=== PATIENT | female | born 1970 | race Caucasian/White ===

== ENCOUNTER 2021-07-30 08:04 | Observation (INO) ==
--- NOTE | 2021-03-18 11:07 | PAT Medication Instructions ---
Medication Instructions Date of Service March 18, 2021 Home Medications acetaminophen 650 mg tablet,extended release 650 mg PO Q12H PRN citalopram 20 mg tablet 20 mg PO QAM ibuprofen 200 mg tablet 800 mg PO BID metoprolol succinate 50 mg tablet,extended release 24 hr 50 mg PO QAM omeprazole 40 mg capsule,delayed release 40 mg PO QAM ASK your surgeon for instructions ibuprofen 200 mg tablet 800 mg PO BID Take morning of surgery With a small sip of water, OTHERWISE NOTHING TO EAT OR DRINK AFTER MIDNIGHT: acetaminophen 650 mg tablet,extended release 650 mg PO Q12H PRN (okay to take up to 4 hours prior to surgery if needed) citalopram 20 mg tablet 20 mg PO QAM metoprolol succinate 50 mg tablet,extended release 24 hr 50 mg PO QAM omeprazole 40 mg capsule,delayed release 40 mg PO QAM Take evening before surgery acetaminophen 650 mg tablet,extended release 650 mg PO Q12H PRN (if needed) Other Notes If you have any questions please call us at [phone] or [phone] or [phone] or [phone]
--- NOTE | 2021-03-20 15:24 | Anesthesiology Consultation ---
Date of Service March 20, 2021 Assessment & Plan (1) Encounter for pre-operative examination: - awaiting confirmed EKG. - surgeon ordered medical pre-op evaluation 03/28/2021. - check urine am DOS. - COVID screening: Per assessment on 03/20/2021: Travel screen negative, no known COVID-19 positive contacts or current COVID-19 related symptoms. Patient vaccinated. Surgeon arranging preop COVID testing, scheduled 03/12/2021. Awaiting results. - Case discussed with Dr. Vick. Outpatient joint assessment: Patient is currently scheduled for inpatient pathway after surgery. If re-evaluated pending system levels during current pandemic, patient is NOT acceptable candidate for outpatient joint program from anesthesia standpoint given co-morbidities and functional status. Chart Review Chart Review: Acceptable Risk for Surgery (pending PCP clearance/confirmed EKG) and Patient seen in Pre Admission Testing Teaching & Discussion Pre-Anesthesia Teaching/Discussion Notes: Instructed NPO after midnight before surgery, except medications with 15 cc of water. Medication instructions provided according to the PAT guidelines. History Surgery Operation Date: 04/16/21 09:50 Proposed Procedures p Left Total Knee Arthroplasty - Nde Sommer Arevalo MD Height/Weight Height: 5 ft 1 in Weight: 116.6 kg Allergies Allergy/AdvReac Type Severity Reaction Status Date / Time sulfamethoxazole Allergy Intermediate Rash Verified 03/15/21 14:30 [From Bactrim] trimethoprim [From Bactrim] Allergy Intermediate Rash Verified 03/15/21 14:30 Medications Home Medications Medication Instructions Recorded Confirmed Last Taken acetaminophen 650 mg 650 mg PO Q12H PRN 03/15/21 03/15/21 Unknown tablet,extended release citalopram 20 mg tablet 20 mg PO QAM 03/15/21 03/15/21 Unknown ibuprofen 200 mg tablet 800 mg PO BID 03/15/21 03/15/21 Unknown metoprolol succinate 50 mg 50 mg PO QAM 03/15/21 03/15/21 Unknown tablet,extended release 24 hr omeprazole 40 mg capsule,delayed 40 mg PO QAM 03/15/21 03/15/21 Unknown release Past Medical History Medical History Anxiety Depression 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 Hypertension Well controlled, stable Morbid obesity with BMI of 45.0-49.9, adult Osteoarthritis Patient denies h/o stroke, seizures, heart attack, heart failure, DM, blood clots or blood transfusions. Exercise / Class Metabolic Activity II 4-5 Yardwork/Stairs/Walk up hill (SOB with 1 FOS, denies CP) Past Family History Family History Other No family history of adverse response to anesthesia Past Surgical History Surgical History History of benign breast biopsy History of section x2 History of colonoscopy 06/2019-repeat in 5 years for polyp History of esophagogastroduodenoscopy (EGD) 06/2019 for dysphagia, resolved with omeprazole History of gynecologic surgery D&E History of gynecological procedure removal of uterine fibroid History of wisdom tooth extraction Past Anesthesia History No Hx of Anesthesia Complications and No Family Hx of Anesthesia Complications History of PONV No Hx of PONV and No Hx of Motion Sickness Social History Smoking Status: Never smoker Do You Dip or Chew Tobacco: No Hx Alcohol Use: Yes alcohol intake frequency: holidays/special occasions only Hx Substance Use: No substance use type: does not use Review of Systems Patient denies chest pain, shortness of breath at rest, snoring, witnessed apneas, dizziness, lightheadedness, fever, chills, cough, or wheezing. Physical Exam Vital Signs Vitals BP 138/85 P 69 TEMP 98.1 SP02 94% on RA RESP 16 Physical Full cervical extension range of motion without pain TMD 3.5 finger breaths Mallampati Score 2 Dentition: intact, caps several back teeth upper and lower bilat, no loose, missing or chipped teeth, implants or bridges Lungs: normal respiratory effort. Clear throughout to auscultation, no adventitious breath sounds Cardiac: regular rate and rhythm, no murmurs noted Carotid arteries: negative bruit bilat Extremities: no distal extremity edema Lab Results Anesthesia Preop Results Results Anesthesia Widget: WBC 8.03 K/uL (4.8-10.8) 03/20/21 Hgb 12.5 g/dL (12.0-16.0) 03/20/21 Hct 36.9 % (37-47) L 03/20/21 Plt 207 K/uL (130-400) 03/20/21 Na 139 mmol/L (136-145) 03/20/21 K 3.5 mmol/L (3.5-5.1) 03/20/21 Cl 108 mmol/L (98-107) H 03/20/21 CO2 26 mmol/L (21-32) 03/20/21 BUN 16 mg/dl (7-18) 03/20/21 Creat 0.66 mg/dl (0.6-1.2) 03/20/21 Glucose Level 90 mg/dl (70-99) 03/20/21 PT 9.8 Seconds (9.0-12.0) 03/20/21 PTT 25.4 Seconds (21.0-31.0) 03/20/21 INR 1.0 (0.9-1.1) 03/20/21 Urine Color Yellow 03/20/21 Urine Appearance Clear (Clear) 03/20/21 Urine pH 6.5 (4.5-7.5) 03/20/21 Urine Specific [place] 1.010 (1.000-1.030) 03/20/21 Urine Protein Negative (Negative) 03/20/21 Urine Glucose (UA) Negative (Negative) 03/20/21 Urine Ketones Negative (Negative) 03/20/21 Urine Blood Negative (Negative) 03/20/21 Urine Nitrite Negative (Negative) 03/20/21 Urine Bilirubin Negative (Negative) 03/20/21 Urine Urobilinogen Negative (Negative) 03/20/21 Urine Leukocyte Esterase Negative (Negative) 03/20/21 Blood Type O Negative 03/20/21 Antibody Screen NEGATIVE 03/20/21 Testing Electrocardiogram Date: 03/20/21 Normal sinus rhythm, rate 73 bpm. Unconfirmed report. Chest X-Ray Date: 03/20/21 IMPRESSION: No acute chest disease.
[~2021-07-30 08:04] MED LIST: ACETAMINOPHEN 500 MG TAB PO SCH; BUPIVACAINE 0.5 % 5 MG/1 ML PF 10ML VIAL ONE; FAMOTIDINE 20 MG TAB PO SCH; LIDOCAINE 2% 2 ML VIAL/AMP(20MG/ML) INFIL ONE; LR 500ML BOLUS, THEN 15ML/HR IV SCH; LR 60ML/HR IV SCH; MIDAZOLAM HCL 1 MG/ML 2ML VIAL ONE; PROPOFOL IV EMULSION 10 MG/ML 20 ML VIAL IV ONE; ROPIVACAINE 0.5% HCL/PF 150 MG, BUPIVACAINE 0.75% MPF 20 ML, EPINEPHrine 0.15 MG, Ketor... INFIL SCH; Scopolamine 1 MG TDSY TD SCH; TRANEXAMIC ACID 1,000 MG **IV Intra-op IV SCH; TRANEXAMIC ACID 1,000 MG **IV Pre-op IV SCH; ceFAZolin 2000MG 2,000 MG/15 ML SYR IV SCH; dexAMETHasone 4 MG TAB PO SCH; fentaNYL citrate 100 MCG/2 ML VIAL ONE
[2021-07-30 08:48] LABS: Appearance Urine Clear (Clear); Bacteria Urine Automated Negative (Negative); Bilirubin Urine Negative (Negative); Blood Urine Negative (Negative); Color Urine Yellow; Epithelial Cell Urine Auto >30 /lpf (0-5); Glucose Urine UA Negative (Negative); Ketones Urine Negative (Negative); Leukocyte Esterase Urine Trace (Negative); Nitrite Urine Negative (Negative); Protein Urine Negative (Negative); RBC Urine Automated 0-4 /hpf (0-4); Specific Gravity Urine 1.019 (1.000-1.030); Urobilinogen Urine Negative (Negative); pH Urine 5.5 (4.5-7.5)
[2021-07-30 08:52] LABS: Basophils # (auto) 0.04 K/uL (0-0.2); Basophils % (auto) 0.4 %; Eosinophils # (auto) 0.18 K/uL (0-0.5); Eosinophils % (auto) 1.7 %; Hematocrit (blood only) 38.8 % (37-47); Hemoglobin 12.7 g/dL (12.0-16.0); Immature Granulocytes # (auto) 0.04 K/uL (0.00-0.02); Immature Granulocytes % (auto) 0.4 %; Lymphocytes # (auto) 1.82 K/uL (1.2-3.4); Lymphocytes % (auto) 17.4 %; Mean Corpuscular Hemoglobin 27.4 pg (25-34); Mean Corpuscular Volume 83.8 fL (80-100); Mean Platelet Volume 10.2 fL (7.4-10.4); Monocytes # (auto) 0.76 K/uL (0.11-0.59); Monocytes % (auto) 7.3 %; Neutrophils # (auto) 7.64 K/uL (1.4-6.5); Neutrophils % (auto) 72.8 %; Platelet Count 268 K/uL (130-400); RDW Standard Deviation 42.9 fL (36.4-46.3); Red Blood Count 4.63 M/uL (4.2-5.4); White Blood Count 10.48 K/uL (4.8-10.8)
[2021-07-30 09:07] LABS: Partial Thromboplastin Time 25.5 Seconds (21.0-31.0); Prothrombin Time 9.7 Seconds (9.0-12.0)
[2021-07-30 09:15] LABS: BUN Creatinine Ratio 21.4 (10-20); Calcium 9.1 mg/dl (8.5-10.1); Creatinine Clr Calc Pharmacy 109.9 ml/min; Est GFR (African American) 115.5 ml/min; Est GFR (Non-African American) 99.6 ml/min; Mean Corpuscular Hgb Conc 32.7 g/dL (32-36); Potassium 3.9 mmol/L (3.5-5.1)
[2021-07-30] MEDS ORDERED: ePHEDrine sulfate 50 MG/ML AMP IV PRN (09:53)
[2021-07-30] MEDS ORDERED: fentaNYL citrate 100 MCG/2 ML VIAL IV PRN (09:53)
[2021-07-30] MEDS ORDERED: ONDANSETRON INJ 2 MG/ML 2 ML VIAL IV PRN ×2 (09:53→13:38)
[2021-07-30] MEDS ORDERED: ATROPINE SULFATE 0.1 MG/ML 10ML SYR IV PRN (09:53)
--- NOTE | 2021-07-30 10:00 | History & Physical Bridge Note ---
Date of Service July 30, 2021 History & Physical Bridge Note I have examined the patient, reviewed the History & Physical and in the interval since the performance of the History & Physical I have noted the following changes of clinical significance: no changes noted Patient is aware of the risks, is asymptomatic, and tested negative for COVID- 19.
[2021-07-30] MEDS ORDERED: ORTHO JOINT ANESTHETIC ONE (10:10)
[2021-07-30] MEDS ORDERED: PROPOFOL IV EMULSION 10 MG/ML 20 ML VIAL IV ONE ×4 (11:40)
[2021-07-30] MEDS ORDERED: MIDAZOLAM HCL 1 MG/ML 2ML VIAL ONE (12:10)
--- NOTE | 2021-07-30 13:33 | Post Operative Brief Note ---
Immediate Post Op Note v1 Date of Surgery July 30, 2021 Pre & Post Diagnosis Operation Date: 07/30/21 10:20 Pre-Op Diagnosis: Left Knee Degenerative Joint Disease Post-Op Diagnosis: Left Knee Degenerative Joint Disease I identified the patient and participated in the time-out.: Yes Procedure Operation Date: 07/30/21 10:20 Actual Procedures p Left Total Knee Arthroplasty(Left) - Ned Arevalo MD Surgeon Ned Arevalo MD Reflow Operator M CHRISTOPHER Connell (No fellow avail) Estimated Blood Loss 100 Findings Consistent with Post-Op Diagnosis Fluids 1300 cc Specimens Left knee contents Anesthesia Type MAC Spinal Regional Complications none
--- NOTE | 2021-07-30 13:34 | Operative Report ---
Post Operative Report Pre & Post Diagnosis Operation Date: 07/30/21 10:20 Pre-Op Diagnosis: Left Knee Degenerative Joint Disease Post-Op Diagnosis: Left Knee Degenerative Joint Disease I identified the patient and participated in the time-out.: Yes Procedure Operation Date: 07/30/21 10:20 Actual Procedures p Left Total Knee Arthroplasty(Left) - Ned Arevalo MD Surgeon Ned Arevalo MD Production Corrugator Jose Connell PA-C (No fellow avail) Estimated Blood Loss 100 Findings See Below Examined Under Anesthesia: ROM -- There was 5 degrees to 125 degrees of flexion Ligamentous examination -- revealed stable Leny, posterior drawer, varus and valgus stress at 5 and 30 degrees. [place] Type IV changes of Patellofemoral and medial compartment, Grade II- III changes lateral compartment. Fluids 1300 cc Specimens Left knee contents Anesthesia Type MAC Spinal Regional Complications none Indications This is a 51-year-old female who has clinical and radiographic findings consistent with osteoarthritis of the a left knee. I recommended that a left total knee replacement be performed. The patient understands the risks of surgery, which include but not limited to: bleeding, infection, re-operation, damage to nerves and arteries, continued knee pain, knee stiffness, DVT, and . The patient understands all of these instructions and explanations, all of his questions have been satisfactorily addressed and the patient has elected to proceed. Informed consent was signed. Description of Procedure IMPLANTS: 1. Femur: Triathlon #3 Left PS, with pegs. 2. Tibia: Triathlon #2 [place]. 3. Insert: Triathlon #2 x 19 mm PS X3 poly. 4. Patella: Triathlon S29 x 8 mm X3 poly. 5. Simplex cement. Jose Connell PA-C is assisting with positioning, retracting, closure, and dressings due to fellow not available. Procedure: The patient was taken to the Operating Room and placed in the supine position after spinal and adductor canal nerve block was administered. My initials and a multidisciplinary time-out were used to identify the left leg as the correct operative limb. A tourniquet was placed high in the thigh. Prior to the incision, 2 grams of intravenous Ancef were given. The left leg was then prepped and draped in a standard sterile fashion. An Esmarch was used to exsanguinate the leg and the tourniquet was inflated to 250 mmHg. The planned mid-line 20 cm incision was created exposing the extensor mechanism. The medial parapatellar arthrotomy was made and the patella was everted. The patella was addressed first. It was prepared by reaming from 18 mm down to 12 mm. An S29 button was found to fit best. The peg holes were made in the standard fashion. The femur was addressed next and the guide yvonne was placed intramedullary. The initial cutting block was placed with 5 degrees of valgus and removing 10 mm for the distal cut. The cut was made and the 4-in-1 cutting block for a size 3 femur was placed. These cuts and the cuts to place the box were made in the standard fashion. Our attention was then drawn to the tibia cut with the external cutting guide, taking 2 mm from the medial low side. There was sufficient extension and flexion gap to fit a 16 mm spacer. The Tibial cut was in valgus and using Varus cutting guide this was corrected. A #2 Tibial baseplate fit well. A trial with a 19 mm spacer showed excellent stability in both flexion and extension, with good ligament balance, and thumbs free patellar tracking. Range of motion of 0- 125 degrees. The tibial baseplate was prepped for the keel and stem. All the trial components were tested again, with good stability and thumbs free tracking of the patella. All components were removed. The tourniquet was deflated. Hemostasis was obtained. 90 ml of total knee cocktail were injected into the soft tissues and periosteum. A bone plug was placed in the femur and covered with bone wax. The tourniquet was deflated. All surfaces were copiously irrigated prior to placement of the components. The femoral component followed by Tibial baseplate were cemented in place and the 19 mm X3 poly was placed. Next, the patellar button was placed using the same Simplex cement. Again the stability and ROM were unchanged. The extensor mechanism was closed with 1-0 and 0 Vicryl with the knee bent approximately 60 degrees in a standard fashion. The peritenon and deep fascia was closed with 2-0 Vicryl. The subcutaneous layer was closed with 3-0 Vicryl. The skin was closed with Zipline and shield. The limb was cleaned and dried. 4x4 dressing was placed over top followed by ABDs, sterile Webril, and a foot to thigh Sarmad bandage. The patient was then transferred to the Recovery Room in stable condition. The sponge and needle counts were correct. POST-OP INSTRUCTIONS: The patient will be WBAT. The patient will be admitted to the hospital.Labs will be obtained during the stay. DVT prophylaxis will included aspirin for 6 w eeks, TEDs, and mechanical foot pumps. The dressing will be changed prior to their discharge or postop day #2 and covered with a Silverlon dressing, whichever comes first. I attest to the content of the Intraoperative Record and any orders documented therein. Any exceptions are noted below.
[2021-07-30] MEDS ORDERED: HYDROmorphone INJ 0.5 MG/0.5 ML SYR IV PRN (13:38)
[2021-07-30] MEDS ORDERED: METOCLOPRAMIDE HCL INJ 5 MG/ML 2 ML VIAL IV PRN (13:38)
[2021-07-30] MEDS ORDERED: MAGNESIUM HYDROXIDE SUSP 30 ML UDC PO PRN (13:38)
[2021-07-30] MEDS ORDERED: NALOXONE HCL 0.4 MG/1 ML VIAL/CARP IV PRN (13:38)
[2021-07-30] MEDS ORDERED: bisacodyL 10 MG SUPP PR PRN (13:38)
--- NOTE | 2021-07-30 14:47 | Anesthesiology Progress Note ---
Date of Service July 30, 2021 Anesthesia Post Procedure Vital Signs Vital Signs: Temp Pulse Pulse Resp BP Pulse Ox 07/30/21 14:40 97.9 F 79 18 135/91 94 07/30/21 14:30 78 20 127/84 94 07/30/21 14:20 82 14 128/83 96 07/30/21 14:10 85 21 136/93 85 L 07/30/21 14:00 79 18 150/96 H 96 07/30/21 13:53 97.5 F L 84 18 137/82 98 07/30/21 08:53 98.2 F 86 18 160/94 H 94 Pain Intensity Left Knee: Pain Intensity: 0 Transfer of Care Handoff Completed per policy Notes Mental Status: alert / awake / arousable and participated in evaluation Patient Amnestic to Procedure: Yes Nausea / Vomiting: adequately controlled Pain: adequately controlled Airway Patency, RR, SpO2: stable & adequate BP & HR: stable & adequate Hydration State: stable & adequate Neuraxial Anesthesia: was administered and sensory block is resolving Anesthetic Complications: no major complications apparent and Pt Satisfied with anesthetic care
--- NOTE | 2021-07-30 14:51 | XRay Report ---
XR knee LT 1 or 2V routine CLINICAL HISTORY: Postoperative evaluation. COMPARISON: Knee radiographs February 27, 2021. FINDINGS: Alignment of the total left knee arthroplasty is anatomic. There is no periprosthetic frac ture or unexpected radiopaque foreign body. IMPRESSION: Expected findings following total left knee arthroplasty. ACT 112: Negative or not required by law. Electronically signed by: Charles Vaz M.D. 07/30/2021 2:49 PM
[2021-07-30] MEDS: SODIUM CHLORIDE 0.9% 1000ML 1,000 ML IV SCH (16:04)
[2021-07-30] MEDS: Scopolamine CHECK PATCH PLACEMENT SCH (16:06)
[2021-07-30] MEDS: ACETAMINOPHEN 500 MG TAB PO SCH ×2 (16:07→21:56)
[2021-07-30] MEDS: ceFAZolin 2000MG 2,000 MG/15 ML SYR IV SCH (18:02)
[2021-07-30] MEDS: ASCORBIC ACID 500 MG TAB PO SCH (18:04)
[2021-07-30] MEDS: FERROUS GLUCONATE 324 MG TAB PO SCH (18:05)
[2021-07-30] MEDS: oxyCODONE HCL IR 5 MG TAB (IMMEDIATE RELEASE) PO PRN ×2 (19:32→20:13)
[2021-07-30] MEDS ORDERED: SENNA 8.6 MG TAB PO SCH (21:00)
[2021-07-30] MEDS: ASPIRIN 81 MG ECTAB PO SCH (21:55)
[2021-07-30] MEDS: DOCUSATE SODIUM 100 MG CAP PO SCH (21:58)
[2021-07-31] MEDS: SODIUM CHLORIDE 0.9% 1000ML 1,000 ML IV SCH (02:15)
[2021-07-31] MEDS: ceFAZolin 2000MG 2,000 MG/15 ML SYR IV SCH (03:41)
[2021-07-31] MEDS: oxyCODONE HCL IR 5 MG TAB (IMMEDIATE RELEASE) PO PRN ×2 (05:30→11:36)
[2021-07-31] MEDS: ACETAMINOPHEN 500 MG TAB PO SCH ×2 (05:31→14:02)
[2021-07-31 07:02] LABS: Hematocrit (blood only) 33.6 % (37-47); Hemoglobin 10.9 g/dL (12.0-16.0); Mean Corpuscular Hemoglobin 27.5 pg (25-34); Mean Corpuscular Hgb Conc 32.4 g/dL (32-36); Mean Corpuscular Volume 84.6 fL (80-100); Mean Platelet Volume 10.3 fL (7.4-10.4); Platelet Count 201 K/uL (130-400); RDW Standard Deviation 42.6 fL (36.4-46.3); Red Blood Count 3.97 M/uL (4.2-5.4); White Blood Count 14.72 K/uL (4.8-10.8)
[2021-07-31 07:37] LABS: BUN Creatinine Ratio 17.4 (10-20); Calcium 8.8 mg/dl (8.5-10.1); Creatinine Clr Calc Pharmacy 112.5 ml/min; Est GFR (Non-African American) 100.1 ml/min; Potassium 3.5 mmol/L (3.5-5.1)
[2021-07-31] MEDS: Scopolamine CHECK PATCH PLACEMENT SCH ×2 (08:02)
[2021-07-31] MEDS ORDERED: CITALOPRAM 20 MG TAB PO SCH (09:00)
[2021-07-31] MEDS ORDERED: METOPROLOL SUCC 50MG EXT REL TAB PO SCH (09:00)
[2021-07-31] MEDS: FERROUS GLUCONATE 324 MG TAB PO SCH (10:02)
[2021-07-31] MEDS: ASPIRIN 81 MG ECTAB PO SCH (10:02)
[2021-07-31] MEDS: ASCORBIC ACID 500 MG TAB PO SCH (10:02)
[2021-07-31] MEDS: DOCUSATE SODIUM 100 MG CAP PO SCH (10:03)
--- NOTE | 2021-07-31 11:41 | Orthopedic Progress Note ---
Date of Service July 31, 2021 Assessment & Plan (1) Status post total left knee replacement: Plan: Postop day 1-status post left total knee replacement. Continue regular diet. She is tolerating this during her inpatient stay. She may be weightbearing as tolerated left lower extremity with the assistance of a walker. Physical therapy and Occupational Therapy as ordered. Case management for disposition. They are setting up [facility] home health. Silverlon dressing was placed to her left knee today. Advised to keep this intact until her follow-up appointment in approximately 2 weeks. She can reinforce with dressings as needed but should not need to do this. Aspirin 81 mg twice daily for 6 weeks for DVT prophylaxis. She is also using JOEL stockings, mobility and SCDs. Pain medication as needed for pain control. We will send her home with pain medication prescriptions. Plan for discharge to home later this afternoon. Follow-up as scheduled in approximately 2 weeks. Will discuss findings with Dr. Arevalo. All questions were answered. Admission and Anticipated Discharge Date Admission Date: July 30, 2021 Subjective Patient doing well. She is having a little pain in her left knee today. She states the numbness and tingling has worn off her toes are back to normal. She feels that she has normal sensation. She did well in physical therapy, ambulated down the becker but did get a little dizzy. She states that her blood pressure dropped very quickly but she feels much better now. Denies any nausea vomiting, fevers or chills, lightheadedness or dizziness currently or chest pains or shortness of breath. Physical Exam Musculoskeletal: Exam of her left knee: Her dressings are clean, dry and intact until the cast pad layer she had a small amount of bloody drainage from the proximal end of the incision. The zip line is in place. The skin edges are well approximated. No active bleeding from the incision itself. Her dressings were removed completely, her skin was cleansed with sterile saline wipe Silverlon dressing was placed. Her Joel stocking was placed on her left leg as well. She is able to actively straight leg raise her left lower extremity. No significant effusion to her left knee. Strength is 5/5. Distal pulses are 2+. Distal sensation in her left foot is normal. She is some mild discomfort behind her left knee, nontender in her left calf and no edema, erythema or warmth. Results & Data ([facility]) Vital Signs (Past 12 Hours) Vital Signs Temp Pulse Pulse Resp BP BP Pulse Ox 07/31/21 10:23 106/72 07/31/21 09:33 91/59 L 07/31/21 07:28 36.8 C 72 16 127/87 100 07/31/21 03:52 36.5 C 72 18 120/75 95 Laboratory Results 07/31/21 07/31/21 Range/Units 06:45 06:45 WBC 14.72 H (4.8-10.8) K/uL RBC 3.97 L (4.2-5.4) M/uL Hgb 10.9 L (12.0-16.0) g/dL Hct 33.6 L (37-47) % MCV 84.6 (80-100) fL MCH 27.5 (25-34) pg MCHC 32.4 (32-36) g/dL RDW Std Deviation 42.6 (36.4-46.3) fL RDW Coeff of Yuliana 14.0 (11.5-14.5) % Plt Count 201 (130-400) K/uL MPV 10.3 (7.4-10.4) fL Sodium 139 (136-145) mmol/L Potassium 3.5 (3.5-5.1) mmol/L Chloride 106 (98-107) mmol/L Carbon Dioxide 27 (21-32) mmol/L Anion Gap 6 (3-11) BUN 12 (6-23) mg/dl Creatinine 0.69 (0.6-1.2) mg/dl Est Cr Clr Drug Dosing 112.5 ml/min Est GFR ( Amer) 116.0 ml/min Est GFR (Non-Af Amer) 100.1 ml/min BUN/Creatinine Ratio 17.4 (10-20) Glucose 107 H (70-99(Fasting)) mg/dl Calcium 8.8 (8.5-10.1) mg/dl Diagnostic Findings XR knee LT 1 or 2V routine CLINICAL HISTORY: Postoperative evaluation. COMPARISON: Knee radiographs February 27, 2021. FINDINGS: Alignment of the total left knee arthroplasty is anatomic. There is no periprosthetic fracture or unexpected radiopaque foreign body. IMPRESSION: Expected findings following total left knee arthroplasty.
--- NOTE | 2021-07-31 17:53 | Discharge Summary ---
Date of Service July 31, 2021 Admission HPI Per Admitting Provider Pt was seen and examined bedside. POD #1 s/p total knee arthroplasty. Pt was admitted last night for observation. No major events over night. Vitals are stable. Labs unremarkable. X-rays show normal post operative changed. Pt reports they are doing well and pain is controlled. They are tolerating PO intake and voiding adequate amounts. Working well with PT/OT. Pt denies F/C, N/V/D, SOB, CP. Pt deemed medically stable and ready for discharge. Admission Exam Per Admitting Provider General: Pt laying in hospital bed AA&O, in NAD, calm and cooperative during exam Lower Extremity: Dressing in tact and not saturated. Incisions clean, dry and with minimal drainage and no surrounding erythema, warmth or purulent drainage. Pt has full ROM of ankle and all 5 digits. Pt has 5/5 strength with resisted DF/PF. SLR in tact. Calf supple and non tender. NVI with sensation to light touch distally and good distal pulses present. Lower extremity noted to have good color and temperature with no signs of vascular or lymphatic insufficiency. Principal Diagnosis left knee osteoarthritis s/p left total knee arthroplasty Discharge Data Allergies Allergy/AdvReac Type Severity Reaction Status Date / Time sulfamethoxazole Allergy Mild Rash Verified 07/30/21 08:47 [From Bactrim] trimethoprim [From Bactrim] Allergy Mild Rash Verified 07/30/21 08:47 Procedures Performed Operation Date: 07/30/21 10:20 Actual Procedures p Left Total Knee Arthroplasty(Left) - Ned Arevalo MD Ordered Studies 07/30/21 10:22 US - OR guided needle placemen Routine Hospital Course (1) Status post total left knee replacement: Postop day 1-status post left total knee replacement. Continue regular diet. She is tolerating this during her inpatient stay. She may be weightbearing as tolerated left lower extremity with the assistance of a walker. Physical therapy and Occupational Therapy as ordered. Case management for disposition. They are setting up [facility] home health. Silverlon dressing was placed to her left knee today. Advised to keep this intact until her follow-up appointment in approximately 2 weeks. She can reinforce with dressings as needed but should not need to do this. Aspirin 81 mg twice daily for 6 weeks for DVT prophylaxis. She is also using MARYANN stockings, mobility and SCDs. Pain medication as needed for pain control. We will send her home with pain medication prescriptions. Follow-up as scheduled in approximately 2 weeks. Total Time Total Time Spent Total Time Spent (In Minutes): 30 minutes preparing discharge instructions, rx and material for patient to be discharge Discharge Plan Discharge Items Patient Disposition: Home - Home Health Services Reason For Visit: Left Knee Osteoarthritis Discharge Diagnosis: S/p left knee arthroplasty Activity: Per Instructions section Non-emergency contact: Surgeon Call non-emergency contact if: you have any medication questions, your pain is not controlled, your temperature is above 101.5, your wound has increased redness, your wound has increased drainage and your wound pain has increased Follow-up/Referrals: Heriberto Hartman M.D. [Primary Care Provider] - Sharon Connell PA-C [Physician Naturopathic Doctor] - 08/14/21 11:15 am Diet: Regular and Heart Healthy Addtl Attending Provider Instructions: Weight bearing as tolerated with walker to assist in ambulation Home health/PT x 2 weeks Frequently ice and elevate You may shower on Post op Day 3. Leave Silverlon dressing in tact. No baths, hot tubs or swimming pools. Keep incision clean and dry. DVT prophylaxis: Aspirin 81mg twice a day for 6 weeks, MARYANN compression stockings for 3 weeks Pain control: oxycodone 5mg q 6 hours as needed, tylenol 500-100mg q 8 hours Take senna as needed while taking narcotic pain medication and iron supplement to prevent constipation Please take 500mg Vitamin C daily for 2 weeks and 324mg ferrous sulfate (iron) for 2 weeks Follow up as scheduled in 2 weeks with [facility] Pending Studies at Discharge: No Stand-Alone Forms: My CYBRA, Smoking Cessation Medications and DC Order Prescriptions: New aspirin 81 mg Tablet,Delayed Release (Dr/Ec) 81 mg PO BID 42 Days Qty: 84 RF: 0 acetaminophen [Tylenol Extra Strength] 500 mg Tablet 1,000 mg PO Q8 Qty: 60 RF: 0 ascorbic acid (vitamin C) [Vitamin C] 500 mg Tablet 500 mg PO BIDM 14 Days Qty: 28 RF: 0 ferrous gluconate 324 mg (38 mg iron) Tablet 324 mg PO BIDM 14 Days Qty: 28 RF: 0 sennosides [Sen-O-Tab] 8.6 mg tablet 8.6 mg PO HS PRN (Reason: constipation) Qty: 20 RF: 0 oxycodone 5 mg Tablet 5 - 10 mg PO Q4H PRN (Reason: pain) Qty: 18 RF: 0 Continued metoprolol succinate 50 mg Tablet Extended Release 24 Hr 50 mg PO QAM RF: 0 omeprazole 40 mg Capsule,Delayed Release(Dr/Ec) 40 mg PO QAM RF: 0 acetaminophen 650 mg Tablet Extended Release 650 mg PO Q12H PRN (Reason: Pain) RF: 0 citalopram [Celexa] 20 mg Tablet 20 mg PO QAM RF: 0 tacrolimus [Protopic] 0.03 % Ointment 1 applic TOPICAL BID PRN (Reason: eczema) RF: 0 Discontinued ibuprofen 200 mg Tablet 800 mg PO BID RF: 0 Discharge Orders: Discharge Order (Routine); Ordered 07/31/21 Ordered By: Sharon De Leon/Other Patient Handouts: What Is Osteoarthritis? Admission Data Admit Date/Time: 07/30/21 13:38 Attending Provider: Ned Arevalo Admit Provider: Ned Arevalo Primary Care Provider: Heriberto Hartman Other Interventions: Discharge Summary Assessment (RN) Last Done: 07/31/21 12:47
== END 2021-07-31 15:39 | disposition home health service (06) ==
LOC: ASU 08:04 → 3E 08:04

== ENCOUNTER 2021-11-19 07:45 | Observation (INO) ==
--- NOTE | 2021-11-15 13:05 | Anesthesiology Consultation ---
Date of Service November 15, 2021 Assessment & Plan (1) Encounter for pre-operative examination: Chart Review Chart Review: Acceptable Risk for Surgery and Patient NOT seen in Pre Admission Testing Consults Requested none History Surgery Operation Date: 11/19/21 07:00 Proposed Procedures p Right Total Knee Arthroplasty(Right) - Ned Arevalo MD Height/Weight Height: 5 ft 1 in Weight: 113.398 kg Allergies Allergy/AdvReac Type Severity Reaction Status Date / Time sulfamethoxazole Allergy Mild Rash Verified 07/30/21 08:47 [From Bactrim] trimethoprim [From Bactrim] Allergy Mild Rash Verified 07/30/21 08:47 Medications Home Medications Medication Instructions Recorded Confirmed Last Taken acetaminophen 650 mg 650 mg PO Q12H PRN 03/15/21 11/14/21 07/29/21 08:00 tablet,extended release citalopram 20 mg tablet (Celexa) 20 mg PO QAM 03/15/21 11/14/21 07/29/21 08:00 metoprolol succinate 50 mg 50 mg PO QAM 03/15/21 11/14/21 07/30/21 06:00 tablet,extended release 24 hr omeprazole 40 mg capsule,delayed 40 mg PO QAM 03/15/21 11/14/21 07/30/21 06:00 release tacrolimus 0.03 % topical ointment 1 applic TOPICAL BID PRN 07/30/21 11/14/21 07/26/21 08:00 (Protopic) oxycodone 5 mg tablet 5 - 10 mg PO Q4H PRN #18 tab 07/31/21 11/14/21 Unknown Past Medical History Medical History Anxiety and depression 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 Hypertension Well controlled, stable Morbid obesity with BMI of 45.0-49.9, adult Osteoarthritis Past Family History Family History Other No family history of adverse response to anesthesia Past Surgical History Surgical History History of benign breast biopsy History of section x2 History of colonoscopy 06/2019-repeat in 5 years for polyp History of esophagogastroduodenoscopy (EGD) 06/2019 for dysphagia, resolved with omeprazole History of gynecologic surgery D&E History of gynecological procedure removal of uterine fibroid History of wisdom tooth extraction S/P total knee arthroplasty JULY 30 2021 Social History Smoking Status: Never smoker Do You Dip or Chew Tobacco: No Hx Alcohol Use: Yes Alcohol type: wine alcohol intake frequency: holidays/special occasions only Hx Substance Use: No substance use type: does not use Testing Electrocardiogram Date: 03/20/21 Findings: + NSR @
--- NOTE | 2021-11-19 06:40 | History & Physical Bridge Note ---
Date of Service November 19, 2021 History & Physical Bridge Note I have examined the patient, reviewed the History & Physical and in the interval since the performance of the History & Physical I have noted the following changes of clinical significance: no changes noted Patient is aware of the risks, is asymptomatic, and tested negative for COVID- 19.
[~2021-11-19 07:45] MED LIST changes: +CeleBREX 200 MG CAP PO SCH; +EPINEPHrine INJ 1 MG/ML AMP ONE; -FAMOTIDINE 20 MG TAB PO SCH; +GABAPENTIN 900 MG DOSE PO SCH; -LIDOCAINE 2% 2 ML VIAL/AMP(20MG/ML) INFIL ONE; +METOCLOPRAMIDE HCL 10 MG TABLET PO SCH; -MIDAZOLAM HCL 1 MG/ML 2ML VIAL ONE; -PROPOFOL IV EMULSION 10 MG/ML 20 ML VIAL IV ONE; +ROPIVACAINE 0.5% 5 MG/ML 30 ML VIAL ONE; -dexAMETHasone 4 MG TAB PO SCH; -fentaNYL citrate 100 MCG/2 ML VIAL ONE
[2021-11-19] MEDS ORDERED: HYDROmorphone INJ 1 MG/ML SYRINGE IV PRN (08:55)
[2021-11-19] MEDS ORDERED: ONDANSETRON INJ 2 MG/ML 2 ML VIAL IV PRN ×2 (08:55→13:51)
[2021-11-19] MEDS ORDERED: LABETALOL HCL IV 5 MG/ML 20ML IV PRN (08:55)
[2021-11-19] MEDS ORDERED: MEPERIDINE HCL 25 MG/ML CARP/VIAL IV PRN (08:55)
[2021-11-19] MEDS ORDERED: ePHEDrine sulfate 50 MG/ML AMP IV PRN (08:55)
[2021-11-19] MEDS ORDERED: fentaNYL citrate 100 MCG/2 ML VIAL IV PRN (08:55)
[2021-11-19] MEDS ORDERED: ATROPINE SULFATE 0.1 MG/ML 10ML SYR IV PRN (08:55)
[2021-11-19] MEDS ORDERED: PHENYLEPHRINE 100MCG/ML 5ML SYR IV PRN (08:55)
[2021-11-19] MEDS ORDERED: fentaNYL citrate 100 MCG/2 ML VIAL ONE (09:09)
[2021-11-19] MEDS ORDERED: MIDAZOLAM HCL 1 MG/ML 2ML VIAL ONE (09:09)
[2021-11-19] MEDS ORDERED: ORTHO JOINT ANESTHETIC ONE (10:17)
[2021-11-19] MEDS ORDERED: PROPOFOL IV EMULSION 10 MG/ML 20 ML VIAL IV ONE ×3 (10:58→13:00)
[2021-11-19] MEDS ORDERED: LIDOCAINE 2% 2 ML VIAL/AMP(20MG/ML) INFIL ONE (10:58)
[2021-11-19] MEDS ORDERED: PHENYLEPHRINE 100MCG/ML 5ML SYR ONE (13:00)
--- NOTE | 2021-11-19 13:42 | Operative Report ---
Post Operative Report Pre & Post Diagnosis Operation Date: 11/19/21 10:20 Pre-Op Diagnosis: Right Knee Osteoarthritis Post-Op Diagnosis: Right Knee Osteoarthritis I identified the patient and participated in the time-out.: Yes Procedure Operation Date: 11/19/21 10:20 Actual Procedures p Right Total Knee Arthroplasty(Right) - Ned Arevalo MD Surgeon Ned Arevalo MD Wood Router Hand Jose Connell PA-C (No fellow avail) Estimated Blood Loss 100 Findings See Below Examined Under Anesthesia: ROM -- There was 10 degrees to 120 degrees of flexion Ligamentous examination -- revealed stable Leny, posterior drawer, varus and valgus stress at 10 and 30 degrees. [place] Type IV changes of Medial and Patellofemoral compartments. Grade III changes in the lateral compartment. Fluids 1800 cc Specimens Right knee contents Anesthesia Type MAC Spinal Regional Complications none Indications This is a 51-year-old female who has clinical and radiographic findings consistent with osteoarthritis of the a right knee. I recommended that a right total knee replacement be performed. The patient understands the risks of surgery, which include but not limited to: bleeding, infection, re-operation, damage to nerves and arteries, continued knee pain, knee stiffness, DVT, and . The patient understands all of these instructions and explanations, all of his questions have been satisfactorily addressed and the patient has elected to proceed. Informed consent was signed. Description of Procedure IMPLANTS: 1. Femur: Triathlon #3 Right PS. 2. Tibia: Triathlon #3 [place]. 3. Insert: Triathlon #3 x 9 mm PS X3 poly. 4. Patella: Triathlon A29 x 9 mm X3 poly. 5. Simplex cement. Jose Connell PA-C is assisting with positioning, retracting, and closure due to fellow not available. Procedure: The patient was taken to the Operating Room and placed in the supine position after spinal and adductor canal nerve block was administered. My initials and a multidisciplinary time-out were used to identify the right leg as the correct operative limb. A tourniquet was placed high in the thigh. Prior to the incision, 2 grams of intravenous Ancef were given. The right leg was then prepped and draped in a standard sterile fashion. An Esmarch was used to exsanguinate the leg and the tourniquet was inflated to 250 mmHg. The planned mid-line 20 cm incision was created exposing the extensor mechanism. The medial parapatellar arthrotomy was made and the patella was everted. The patella was addressed first. It was prepared by reaming from 19 mm down to 12 mm. An A29 button was found to fit best. The peg holes were made in the standard fashion. The femur was addressed next and the guide yvonne was placed intramedullary. The initial cutting block was placed with 5 degrees of valgus and removing 10 mm for the distal cut. The cut was made and the 4-in-1 cutting block for a size 3 femur was placed. These cuts and the cuts to place the box were made in the standard fashion. The distal peg were created after testing knee stability with trial components in and using the trial femur as a guide in the standard fashion. Our attention was then drawn to the tibia cut with the external cutting guide, taking 2 mm from the medial low side. There was sufficient extension and flexion gap to fit a 9 mm spacer. A #3 Tibial baseplate fit well. A trial with a 9 mm spacer showed excellent stability in both flexion and extension, with good ligament balance, and thumbs free patellar tracking. Range of motion of 0- 120 degrees. The tibial baseplate was prepped for the keel and stem. All the trial components were tested again, with good stability and thumbs free tracking of the patella. All components were removed. The tourniquet was deflated. Hemostasis was obtained. 90 ml of total knee cocktail were injected into the soft tissues and periosteum. A bone plug was placed in the femur and covered with bone wax. After a 13 minute break, the limb was exsanguinated again and the tourniquet was re-inflated. All surfaces were copiously irrigated prior to placement of the components. The femoral component followed by Tibial baseplate were cemented in place and the 9 mm X3 poly was placed. Next, the patellar button was placed using the another batch of Simplex cement. Once the cement had cured, the range of motion and stability were unchanged. The extensor mechanism was closed with 1-0 and 0 Vicryl with the knee bent approximately 60 degrees in a standard fashion. The peritenon and deep fascia was closed with 2-0 Vicryl. The subcutaneous layer was closed with 3-0 Vicryl. The skin was closed with Zipline and shield. The limb was cleaned and dried. 4x4 dressing was placed over top followed by ABDs, sterile Webril, and a foot to thigh Sarmad bandage. The patient was then transferred to the Recovery Room in stable condition. The sponge and needle counts were correct. POST-OP INSTRUCTIONS: The patient will be WBAT. The patient will be admitted to the hospital.Labs will be obtained during the stay. DVT prophylaxis will included aspirin for 6 weeks, TEDs, and mechanical foot pumps. The dressing will be changed prior to their discharge or postop day #2 and covered with a Silverlon dressing, whichever comes first. I attest to the content of the Intraoperative Record and any orders documented therein. Any exceptions are noted below.
--- NOTE | 2021-11-19 13:42 | Post Operative Brief Note ---
Immediate Post Op Note v1 Date of Surgery November 19, 2021 Pre & Post Diagnosis Operation Date: 11/19/21 10:20 Pre-Op Diagnosis: Right Knee Osteoarthritis Post-Op Diagnosis: Right Knee Osteoarthritis I identified the patient and participated in the time-out.: Yes Procedure Operation Date: 11/19/21 10:20 Actual Procedures p Right Total Knee Arthroplasty(Right) - Ned Arevalo MD Surgeon Ned Arevalo MD Information Technology Security Manager Jose Connell PADawnaC (No fellow avail) Estimated Blood Loss 100 Findings Consistent with Post-Op Diagnosis Fluids 1800 cc Specimens Right knee contents Anesthesia Type MAC Spinal Regional Complications none
[2021-11-19] MEDS ORDERED: HYDROmorphone INJ 0.5 MG/0.5 ML SYR IV PRN (13:51)
[2021-11-19] MEDS ORDERED: MAGNESIUM HYDROXIDE SUSP 30 ML UDC PO PRN (13:51)
[2021-11-19] MEDS ORDERED: bisacodyL 10 MG SUPP PR PRN (13:51)
[2021-11-19] MEDS ORDERED: NALOXONE HCL 0.4 MG/1 ML VIAL/CARP IV PRN (13:51)
[2021-11-19] MEDS ORDERED: METOCLOPRAMIDE HCL INJ 5 MG/ML 2 ML VIAL IV PRN (13:51)
--- NOTE | 2021-11-19 14:07 | Operative Report ---
Post Operative Report Pre & Post Diagnosis Operation Date: 11/19/21 10:20 Pre-Op Diagnosis: Right Knee Osteoarthritis Post-Op Diagnosis: Right Knee Osteoarthritis I identified the patient and participated in the time-out.: Yes Procedure Operation Date: 11/19/21 10:20 Actual Procedures p Right Total Knee Arthroplasty(Right) - Ned Arevalo MD Surgeon Dr Ned Arevalo Senior Power Plant Operator Jose Connell PA-C (No fellow avail) Estimated Blood Loss 100 Findings Consistent with Post-Op Diagnosis Specimens synovium right knee Description of Procedure Pt was taken to operating room, placed under general anesthesia with spinal nerve block. Pt was given 2g Ancef IV. Prepped and draped in sterile fashion. I was present during the entire case and assisted with positioning, instrumentation, closure and dressings. Please see Dr. Arevalo's op report for further detail. Pt was awake and transferred to PACU in stable condition I attest to the content of the Intraoperative Record and any orders documented therein. Any exceptions are noted below.
--- NOTE | 2021-11-19 14:14 | XRay Report ---
XR knee RT 1 or 2V routine CLINICAL HISTORY: Surgical Post Op. Status post total knee replacement COMPARISON STUDY: No previous studies for comparison. TECHNIQUE: 2 right knee views FINDINGS: The patient is status post total knee replacement. The prosthetic components are in anatomi c alignment with no acute abnormality seen. Air is present within the soft tissues from the procedure . IMPRESSION: 1. Status post total knee replacement with resurfacing of the patella. ACT 112: Negative or not required by law. Electronically signed by: Arnaldo Lino M.D. 11/19/2021 2:13 PM
--- NOTE | 2021-11-19 14:35 | Anesthesiology Progress Note ---
Date of Service November 19, 2021 Anesthesia Post Procedure Vital Signs Vital Signs: Temp Pulse Pulse Resp BP BP Pulse Ox 11/19/21 14:25 36.7 C 74 14 99/81 L 97 11/19/21 14:15 76 13 122/86 100 11/19/21 14:05 78 14 124/73 98 11/19/21 13:55 37 C 80 13 140/84 98 11/19/21 08:17 37.2 C 79 20 136/88 98 Pain Intensity Right Knee: Pain Intensity: 1 Transfer of Care Handoff Completed per policy Notes Mental Status: alert / awake / arousable Patient Amnestic to Procedure: Yes Nausea / Vomiting: adequately controlled Pain: adequately controlled Airway Patency, RR, SpO2: stable & adequate BP & HR: stable & adequate Hydration State: stable & adequate Neuraxial Anesthesia: was administered and sensory block is resolving Anesthetic Complications: no major complications apparent and Pt Satisfied with anesthetic care
--- NOTE | 2021-11-19 15:45 | Hospitalist Consultation ---
Date of Consultation November 19, 2021 Assessment & Plan (1) Status post right knee replacement: 11/19/21 Dr Arevalo, asa 81 mg bid for dvt prevention (2) Hypertension: continue metoprolol (3) GERD (gastroesophageal reflux disease): on omeprazole of pharmacy substitution (4) Depression: On celexa for depression History of Present Illness Attending Physician: Ned Arevalo MD History of Present Illness 51 F s/p left Total knee arthroplasty 11/19/[address] Arevalo, did have medical clearance from pcp in [place]. Typically is healthy only taking Celexa, metoprolol, omeprazole. last knee replacement she went home on pod #1 Allergies Allergy/AdvReac Type Severity Reaction Status Date / Time sulfamethoxazole Allergy Mild Rash Verified 11/19/21 08:14 [From Bactrim] trimethoprim [From Bactrim] Allergy Mild Rash Verified 11/19/21 08:14 Home Medications Medication Instructions Recorded Confirmed Type acetaminophen 650 mg 650 mg PO Q12H PRN 03/15/21 11/19/21 History tablet,extended release citalopram 20 mg tablet (Celexa) 20 mg PO QAM 03/15/21 11/19/21 History metoprolol succinate 50 mg 50 mg PO QAM 03/15/21 11/19/21 History tablet,extended release 24 hr omeprazole 40 mg capsule,delayed 40 mg PO QAM 03/15/21 11/19/21 History release tacrolimus 0.03 % topical ointment 1 applic TOPICAL BID PRN 07/30/21 11/19/21 History (Protopic) oxycodone 5 mg tablet 5 - 10 mg PO Q4H PRN #18 tab 07/31/21 11/19/21 Rx Patient History Medical History (Updated 11/19/21 @ 15:52 by Lei Brasher MD) Anemia Anxiety and depression 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 Hypertension Well controlled, stable Morbid obesity with BMI of 45.0-49.9, adult Osteoarthritis Surgical History (Updated 11/19/21 @ 15:51 by Lei Brasher MD) History of benign breast biopsy History of section x2 History of colonoscopy 06/2019-repeat in 5 years for polyp History of esophagogastroduodenoscopy (EGD) 06/2019 for dysphagia, resolved with omeprazole History of gynecologic surgery D&E History of gynecological procedure removal of uterine fibroid History of wisdom tooth extraction S/P total knee arthroplasty JULY 30 2021 Family History Other No family history of adverse response to anesthesia Social History Smoking Status: Never smoker Second Hand Exposure: No; Do You Dip or Chew Tobacco: No; Tobacco Cessation Education Requested by Patient: No Hx Alcohol Use: Yes Alcohol type: wine Hx Substance Use: No Preferred Language: Nepalese Communication Ability: Effective Chef Broiler Or Fry Required: No Beliefs That Will Affect Care: None and Yazdanism marital status: Current Living Situation: Spouse and Other Current Living Situation Comment: home with daughter and How many Children do You have: 1 Other Information That Helps Us Care for You: No Feels Safe at Home: Yes Safety Concerns: Feels Safe At This Time Assistive Devices: Cane, Glasses and Walker Assistive Devices Comment: ONLY USED AFTER LEFT KNEE- WILL BRING DOS Review of Systems Review of Systems: Mild distress and fatigue no headache, no visual changes no speech or swallowing issues no chest pain, pressure or palpitations no shortness of breath, cough or wheezes no abdominal pain, nausea or vomiting, diarrhea or constipation no dysuria, hematuria or frequency right leg is bangaged no back pain, CVA tenderness or radicular pain no bruising, bleeding or rashes no focal signs of weakness or numbness or altered sensation no complaints of anxiety or depression.. Physical Exam Physical Exam: The patient appeared well nourished and normally developed. Vital signs as documented. Head exam is normocephalic atraumatic Neck is without JVD, thyromegaly, or carotid bruits. Lungs are clear to auscultation, no focal loss of breath sounds Cardiac exam, Rhythm is regular.. No murmurs, rubs or gallops. Abdominal exam reveals normal bowel sounds, soft non tender, no masses right extremity is bangaded Neurologic exam is alert and oriented, no focal loss of strength or sensation Skin is without bruises or rashes Psychologically is without concerns for anxiety or depression.. Results & Data Results & Data ([facility]) Vital Signs (Past 12 Hours) Vital Signs Temp Pulse Pulse Resp BP BP Pulse Ox 11/19/21 14:35 77 19 123/84 94 11/19/21 14:25 98.1 F 74 14 99/81 L 97 11/19/21 14:15 76 13 122/86 100 11/19/21 14:05 78 14 124/73 98 11/19/21 13:55 98.6 F 80 13 140/84 98 11/19/21 08:17 99.0 F 79 20 136/88 98 PG Care Time/CCT Total # of Minutes Spent Total Time Spent with Patient: Total time spent is greater than 50% in coordination of care (as documented) at patient's floor/unit and/or counseling patient: Coding Level of Care Code 71895 Inpt Consult Level 2 Diagnoses Hypertension I10 GERD (gastroesophageal reflux disease) K21.9 Status post right knee replacement Z96.651 Depression F32.A
[2021-11-19] MEDS: SODIUM CHLORIDE 0.9% 1000ML 1,000 ML IV SCH ×2 (15:54→22:46)
[2021-11-19] MEDS: ACETAMINOPHEN 500 MG TAB PO SCH ×2 (15:54→20:45)
[2021-11-19] MEDS ORDERED: Scopolamine CHECK PATCH PLACEMENT SCH (16:00)
[2021-11-19] MEDS: ASCORBIC ACID 500 MG TAB PO SCH (17:23)
[2021-11-19] MEDS: FERROUS GLUCONATE 324 MG TAB PO SCH (17:23)
[2021-11-19] MEDS: ceFAZolin 2000MG 2,000 MG/15 ML SYR IV SCH (18:20)
[2021-11-19] MEDS: ASPIRIN 81 MG ECTAB PO SCH (20:46)
[2021-11-19] MEDS: SENNA 8.6 MG TAB PO SCH (20:46)
[2021-11-19] MEDS: DOCUSATE SODIUM 100 MG CAP PO SCH (20:46)
--- NOTE | 2021-11-19 21:54 | Orthopedic Progress Note ---
Date of Service November 19, 2021 Assessment & Plan (1) Osteoarthritis of right knee: Plan: POD #0 s/p R TKA, doing as well as expected. Resume diet. WBAT with walker and assistance as needed. OOB to chair. Continue pain control. Check labs tomorrow. DVT prophylaxis: TEDs 3 weeks, foot pumps while in hospital, ASA 81 mg BID for 6 weeks. PT/OT. D/C planning. Present on Admission?: Yes Admission and Anticipated Discharge Date Admission Date: November 19, 2021 Subjective Doing well Review of Systems Review of Systems: All systems reviewed & are unremarkable except as noted in HPI & below Physical Exam Physical Exam: RLE: Sitting in a chair comfortably. BCR < 2 sec. Sensation to light touch intact distally. Wiggling ankle and toes. Able to preform a straight leg raise. Calf soft and non-tender. Dressing is clean, dry, intact. Results & Data ([facility]) Vital Signs (Past 12 Hours) Vital Signs Temp Pulse Pulse Resp BP Pulse Ox 11/19/21 19:40 36.7 C 73 20 120/80 97 11/19/21 18:19 95 H 18 136/81 95 11/19/21 17:22 37.1 C 92 H 18 134/89 95 11/19/21 16:09 80 18 123/88 98 11/19/21 15:30 78 18 128/87 97 11/19/21 15:00 36.7 C 73 18 135/79 97 11/19/21 14:35 77 19 123/84 94 11/19/21 14:25 36.7 C 74 14 99/81 L 97 11/19/21 14:15 76 13 122/86 100 11/19/21 14:05 78 14 124/73 98 11/19/21 13:55 37 C 80 13 140/84 98 Diagnostic Findings Laboratory Results POC Ur Test NEG (NEG) 11/19/21 08:40 SARS-CoV-2, RNA, NAAT NEGATIVE (NEGATIVE) 11/19/21 07:55 Blood Type O Negative 11/19/21 08:05 Antibody Screen NEGATIVE 11/19/21 08:05 Impressions Knee X-Ray 11/19/21 13:55 XR knee RT 1 or 2V routine CLINICAL HISTORY: Surgical Post Op. Status post total knee replacement COMPARISON STUDY: No previous studies for comparison. TECHNIQUE: 2 right knee views FINDINGS: The patient is status post total knee replacement. The prosthetic components are in anatomic alignment with no acute abnormality seen. Air is present within the soft tissues from the procedure. IMPRESSION: 1. Status post total knee replacement with resurfacing of the patella. ACT 112: Negative or not required by law. Electronically signed by: Arnaldo Lino M.D. 11/19/2021 2:13 PM
[2021-11-20] MEDS: oxyCODONE HCL IR 5 MG TAB (IMMEDIATE RELEASE) PO PRN ×4 (02:05→21:17)
[2021-11-20] MEDS: ceFAZolin 2000MG 2,000 MG/15 ML SYR IV SCH (02:06)
[2021-11-20] MEDS: ACETAMINOPHEN 500 MG TAB PO SCH ×3 (05:11→20:06)
[2021-11-20 06:26] LABS: Hematocrit (blood only) 31.4 % (37-47); Hemoglobin 9.9 g/dL (12.0-16.0); Mean Corpuscular Hemoglobin 25.4 pg (25-34); Mean Corpuscular Hgb Conc 31.5 g/dL (32-36); Mean Corpuscular Volume 80.7 fL (80-100); Mean Platelet Volume 10.5 fL (7.4-10.4); Platelet Count 177 K/uL (130-400); RDW Coefficient of Variation 14.5 % (11.5-14.5); RDW Standard Deviation 42.5 fL (36.4-46.3); Red Blood Count 3.89 M/uL (4.2-5.4); White Blood Count 12.84 K/uL (4.8-10.8)
[2021-11-20 06:55] LABS: Calcium 8.2 mg/dl (8.5-10.1); Creatinine Clr Calc Pharmacy 129.2 ml/min; Est GFR (African American) 121.5 ml/min; Est GFR (Non-African American) 104.8 ml/min; Potassium 3.5 mmol/L (3.5-5.1)
[2021-11-20] MEDS: FERROUS GLUCONATE 324 MG TAB PO SCH ×2 (08:59→17:13)
[2021-11-20] MEDS: DOCUSATE SODIUM 100 MG CAP PO SCH ×2 (08:59→20:06)
[2021-11-20] MEDS: ASPIRIN 81 MG ECTAB PO SCH ×2 (08:59→20:06)
[2021-11-20] MEDS: CITALOPRAM 20 MG TAB PO SCH (08:59)
[2021-11-20] MEDS: PANTOprazole 40 MG TAB PO SCH (08:59)
[2021-11-20] MEDS: METOPROLOL SUCC 50MG EXT REL TAB PO SCH (08:59)
[2021-11-20] MEDS: MULTIVITAMIN TAB PO SCH (08:59)
[2021-11-20] MEDS: ASCORBIC ACID 500 MG TAB PO SCH ×2 (08:59→17:13)
--- NOTE | 2021-11-20 09:35 | Orthopedic Progress Note ---
Date of Service November 20, 2021 Assessment & Plan (1) Osteoarthritis of right knee: Plan: POD #1 s/p R TKA, doing as well as expected. Resume diet. WBAT with walker and assistance as needed. OOB to chair. Continue pain control. Will check back in pm for possible dressing change to DSD if any drainage or Silverlon type dressing if dry. DVT prophylaxis: TEDs 3 weeks, foot pumps while in hospital, ASA 81 mg BID for 6 weeks. PT/OT. D/C planning for home later today as long as remains medically stable and passes PT/OT. Admission and Anticipated Discharge Date Admission Date: November 19, 2021 Subjective Doing well, pain contolled with oral pain meds. Physical Exam Physical Exam: RLE: BCR < 2 sec. Sensation to light touch intact distally. Wiggling ankle and toes. Able to preform a straight leg raise. Calf soft and non-tender. Dressing is clean, dry, intact. Results & Data ([facility]) Vital Signs (Past 12 Hours) Vital Signs Temp Pulse Resp BP Pulse Ox 11/20/21 06:20 36.5 C 74 20 135/85 99 11/20/21 02:34 36.7 C 64 20 134/73 95 11/19/21 22:29 37 C 74 18 113/77 94 Laboratory Results 11/20/21 11/20/21 Range/Units 05:36 05:36 WBC 12.84 H (4.8-10.8) K/uL RBC 3.89 L (4.2-5.4) M/uL Hgb 9.9 L (12.0-16.0) g/dL Hct 31.4 L (37-47) % MCV 80.7 (80-100) fL MCH 25.4 (25-34) pg MCHC 31.5 L (32-36) g/dL RDW Std Deviation 42.5 (36.4-46.3) fL RDW Coeff of Yuliana 14.5 (11.5-14.5) % Plt Count 177 (130-400) K/uL MPV 10.5 H (7.4-10.4) fL Sodium 140 (136-145) mmol/L Potassium 3.5 (3.5-5.1) mmol/L Chloride 107 (98-107) mmol/L Carbon Dioxide 28 (21-32) mmol/L Anion Gap 5 (3-11) BUN 12 (6-23) mg/dl Creatinine 0.60 (0.6-1.2) mg/dl Est Cr Clr Drug Dosing 129.2 ml/min Est GFR ( Amer) 121.5 ml/min Est GFR (Non-Af Amer) 104.8 ml/min BUN/Creatinine Ratio 20.0 (10-20) Glucose 121 H (70-99(Fasting)) mg/dl Calcium 8.2 L (8.5-10.1) mg/dl
--- NOTE | 2021-11-20 12:57 | Hospitalist Progress Note ---
Date of Service November 20, 2021 Assessment & Plan (1) Status post right knee replacement: Plan: POD#[address] Arevalo - Recommend use of IS q1h wa for atelectasis/pna prevention - pain control, dvt ppx (advise a minimum of 14 days), dressing changes as per primary service - WBAT - PT/OT (2) Hypertension: Plan: - continue metoprolol (3) GERD (gastroesophageal reflux disease): Plan: - on PPI at home (omeprazole) which was continued with hospital formulary equivalent (4) Depression: Plan: - Continued on celexa as prescribed Plan: Thank you for allowing us to participate in the care of your patient. I have no further recommendations. She is medically suitable for discharge from my standpoint. Follow up with pcp within 7-10 days of discharge and ortho as directed. Will sign off. Please feel free to notify should any acute needs arise. Plan to be d/w Dr. Karimi. Admission and Anticipated Discharge Date Admission Date: November 19, 2021 Subjective Patient seen on daily rounds this morning. She is s/p R TKA pod#[address] Arevalo. Resting comfortably in bed. Knee pain is noticeable but not uncontrolled. Required a dose of OxyIR overnight. Denies cp or dyspnea. Review of Systems Review of Systems: All systems reviewed and are unremarkable except as noted in HPI and below. Denies fever, chills, fatigue, headache, nasal congestion, sore throat, cough, chest pain, shortness of breath, palpitations, orthopnea, PND, abdominal pain, n/v/d, constipation, dysuria, hematuria, frequency, back pain, easy bruising or bleeding, skin lesions or rashes. Physical Exam Physical Exam: GENERAL: 51 yo obese middle aged wf. NAD. LUNGS: Clear to auscultation bilaterally. No W/R/R. CARDIOVASCULAR: Regular rate and rhythm. ABDOMEN: Soft, non-tender and non-distended. BS normoactive x 4 quad. EXTREMITIES: No edema. Non-tender. Peripheral pulses +2/4. R knee dressed and wrapped in diallo. No obvious drains present. Neg bneita's sign. No calf tenderness. NEUROLOGIC: A&O x3. Nonfocal PSYCHIATRIC: Cooperative. Appropriate mood and affect. SKIN: Warm, dry, intact. No rashes or lesions. Results & Data Results & Data ([facility]) Vital Signs (Past 12 Hours) Vital Signs Temp Pulse Resp BP Pulse Ox 11/20/21 11:11 36.6 C 76 20 101/67 98 11/20/21 06:20 36.5 C 74 20 135/85 99 11/20/21 02:34 36.7 C 64 20 134/73 95 Laboratory Results 11/20/21 05:36 11/20/21 05:36 PG Care Time/CCT Total # of Minutes Spent Total Time Spent with Patient: Total time spent is greater than 50% in coordination of care (as documented) at patient's floor/unit and/or counseling patient: Coding Level of Care Code 37955 Subseq Hosp Care Lvl 2 Diagnoses Status post right knee replacement Z96.651 Hypertension I10 GERD (gastroesophageal reflux disease) K21.9 Depression F32.A
[2021-11-20] MEDS: SENNA 8.6 MG TAB PO SCH (20:06)
[2021-11-21] MEDS: ACETAMINOPHEN 500 MG TAB PO SCH (04:33)
[2021-11-21] MEDS: oxyCODONE HCL IR 5 MG TAB (IMMEDIATE RELEASE) PO PRN ×3 (04:34→13:09)
[2021-11-21] MEDS: ASCORBIC ACID 500 MG TAB PO SCH (08:38)
[2021-11-21] MEDS: FERROUS GLUCONATE 324 MG TAB PO SCH (08:38)
[2021-11-21] MEDS: DOCUSATE SODIUM 100 MG CAP PO SCH (08:38)
[2021-11-21] MEDS: PANTOprazole 40 MG TAB PO SCH (08:39)
[2021-11-21] MEDS: METOPROLOL SUCC 50MG EXT REL TAB PO SCH (08:39)
[2021-11-21] MEDS: MULTIVITAMIN TAB PO SCH (08:39)
[2021-11-21] MEDS: ASPIRIN 81 MG ECTAB PO SCH (08:39)
[2021-11-21] MEDS: CITALOPRAM 20 MG TAB PO SCH (08:39)
--- NOTE | 2021-11-21 12:25 | Orthopedic Progress Note ---
Date of Service November 21, 2021 Assessment & Plan (1) Status post right knee replacement: Plan: Patient was seen in her room this morning. She is awaiting therapy. Vitals are good. She may be discharged to home today. Discharge order has been written. Follow-up in the office as scheduled with princess WHITE for staple removal. She will keep an eye on the adhesive dressing. If the bleeding is starting to absorb through, she will call the office for a dressing change. Otherwise this may remain in place until she is seen for staple removal. Continue with ice, elevation, and compression. Prescription for oxycodone has been sent to her pharmacy. Written discharge instructions were provided. Call the office with any other concerns Admission and Anticipated Discharge Date Admission Date: November 19, 2021 Subjective Patient is seen in her room this morning. She states she feels much better than yesterday. She has been out of bed. She is awaiting physical therapy. She finished breakfast this morning without issue. No current nausea. Pain is controlled. No other complaints. No chest pain, shortness of breath, nausea, vomiting, or abdominal pain. No significant knee pain. Physical Exam Physical Exam: General: Well-developed, well-nourished, middle-aged female, in no acute distress. Sitting on the edge of the bed. Alert and oriented. Conversive. Skin: Warm and dry with good turgor. No rashes. No significant ecchymosis or edema. She does have an adhesive dressing in place over the anterior right knee. There is some minor strikethrough of blood, about the size of a nickel. This is proximal. Musculoskeletal: Patient has intact motor function of her right leg. She has intact dorsiflexion and plantarflexion of the ankle and flexion extension of the toes. She is able to straighten her right leg fully. She has flexion to around 70 degrees. She is able to perform a straight leg raise. Neurologic: Gross sensation is intact across the right leg by soft touch. Peripheral pulses are 2+. Results & Data ([facility]) Vital Signs (Past 12 Hours) Vital Signs Temp Pulse Resp BP Pulse Ox 11/21/21 11:26 37 C 81 20 122/79 96 11/21/21 06:48 37 C 81 20 122/79 96
== END 2021-11-21 13:39 | disposition home or self-care (01) ==
LOC: 3E 07:45 → ASU 07:45
DX: Z68.42 Body mass index [BMI] 45.0-49.9, adult; F32.A Depression, unspecified; I10 Essential (primary) hypertension; E66.01 Morbid (severe) obesity due to excess calories; M17.11 Unilateral primary osteoarthritis, right knee; Z79.899 Other long term (current) drug therapy; M65.88 Other synovitis and tenosynovitis, other site; K21.9 Gastro-esophageal reflux disease without esophagitis; Z96.652 Presence of left artificial knee joint; Z88.1 Allergy status to other antibiotic agents